=== PATIENT | male | born 1940 | race Caucasian/White ===

== ENCOUNTER 2020-03-22 19:33 | Inpatient (IN) ==
[2020-03-22 20:01] LABS: Basophils % 0.1 %; Eosinophils # 0.1 K/mcL (0.0-0.6); Eosinophils % 1.1 %; Hematocrit 44.6 % (37.5-50.1); Immature Granulocytes % 0.3 % (0-4); Lymphocytes # 0.8 K/mcL (0.6-4.6); Lymphocytes % 10.6 %; Mean Corpuscular HGB Conc 33.6 g/dL (31.6-35.5); Mean Corpuscular Hemoglobin 32.5 pg (28.0-33.3); Mean Corpuscular Volume 96.7 fL (83.0-100.0); Monocytes # 0.3 K/mcL (0.0-1.3); Monocytes % 4.6 %; Neutrophils # 6.2 K/mcL (1.6-8.9); Platelet Count 103 K/mcL (140-400); Red Blood Count 4.61 M/mcL (4.19-5.50); Red Cell Distribution Width 21.3 % (11.5-14.5); Segmented Neutrophils % 83.3 %; White Blood Count 7.4 K/mcL (4.3-11.1)
[2020-03-22 20:17] LABS: INR 1.4; Prothrombin Time 15.7 Seconds (9.4-12.1)
[2020-03-22 20:19] LABS: Activated Partial Thrombo Time 40.1 Seconds (26.0-36.0)
[2020-03-22 20:24] LABS: Bilirubin,Urine Negative (Negative); Blood,Urine Negative (Negative); Clarity,Urine Clear (Clear); Color,Urine Yellow (Yellow); Glucose,Urine (UA) Normal (Normal); Ketones,Urine Negative (Negative); Leukocyte Esterase,Urine Negative (Negative); Nitrite,Urine Negative (Negative); Protein,Urine Negative (Neg-Trace); Specific Gravity,Urine 1.015 (1.010-1.025); Urobilinogen,Urine Normal (Normal)
[2020-03-22 20:27] LABS: Troponin I 0.03 ng/mL (< 0.04)
[2020-03-22 20:28] LABS: Alanine Aminotransferase 32 Units/L (7-52); Albumin 2.6 g/dL (3.5-5.7); Albumin/Globulin Ratio 0.8 (1.1-2.2); Alkaline Phosphatase 127 Units/L (34-104); Aspartate Amino Transferase 39 Units/L (13-39); BUN/Creatinine Ratio 52 (6-26); Bilirubin,Direct 0.9 mg/dL (0.0-0.2); Bilirubin,Indirect 1.3 mg/dL (0.0-1.0); Bilirubin,Total 2.2 mg/dL (0.3-1.0); Blood Urea Nitrogen 67 mg/dL (8-23); Calcium 8.3 mg/dL (8.6-10.3); Carbon Dioxide 27 mEq/L (23-29); Chloride 101 mEq/L (98-107); Globulin 3.3 g/dL (2.4-3.5); Glucose 68 mg/dL (70-105); Magnesium 1.9 mg/dL (1.6-2.6); Osmolality,Calculated 306 (280-300); Potassium 2.9 mEq/L (3.5-5.1); Sodium 139 mEq/L (136-145); Total Protein 5.9 g/dL (6.4-8.9); eGFR For African Americans > 60 (> 60); eGFR For Non-African Americans 54 (> 60)
[2020-03-22] MEDS ORDERED: Furosemide 40 MG/4 ML VIAL IVP ONE (21:05)
[2020-03-22] MEDS ORDERED: Isovue-370 500 ML BOTTLE IVP ONE ×2 (21:58→22:10)
[2020-03-22] MEDS ORDERED: Naloxone 0.4 MG/ML INJ IVP PRN (22:10)
[2020-03-22] MEDS ORDERED: cefTRIAXone 1,000 MG in 0.9 % Sodium Chloride Mini Bag 100 ML IVPB ONE (23:44)
[2020-03-22] MEDS: traZODone 50 MG TABLET PO SCH (23:58)
[2020-03-23 06:45] LABS: Basophils % 0.1 %; Eosinophils # 0.1 K/mcL (0.0-0.6); Eosinophils % 1.3 %; Hematocrit 47.8 % (37.5-50.1); Hemoglobin 16.5 g/dL (12.9-16.9); Immature Granulocytes % 0.4 % (0-4); Mean Corpuscular HGB Conc 34.5 g/dL (31.6-35.5); Mean Corpuscular Hemoglobin 33.2 pg (28.0-33.3); Mean Corpuscular Volume 96.2 fL (83.0-100.0); Mean Platelet Volume 12.1 fL (9.4-12.4); Monocytes # 0.4 K/mcL (0.0-1.3); Neutrophils # 6.3 K/mcL (1.6-8.9); Platelet Count 110 K/mcL (140-400); Red Blood Count 4.97 M/mcL (4.19-5.50); Red Cell Distribution Width 21.4 % (11.5-14.5); Segmented Neutrophils % 80.2 %; White Blood Count 7.9 K/mcL (4.3-11.1)
[2020-03-23 07:21] LABS: BUN/Creatinine Ratio 52 (6-26); Blood Urea Nitrogen 60 mg/dL (8-23); Calcium 8.4 mg/dL (8.6-10.3); Carbon Dioxide 30 mEq/L (23-29); Chloride 104 mEq/L (98-107); Glucose 56 mg/dL (70-105); Magnesium 1.7 mg/dL (1.6-2.6); Osmolality,Calculated 313 (280-300); Potassium 3.1 mEq/L (3.5-5.1); Sodium 144 mEq/L (136-145); eGFR For African Americans > 60 (> 60); eGFR For Non-African Americans > 60 (> 60)
[2020-03-23] MEDS ORDERED: carvediloL 6.25 MG TABLET PO SCH (08:00)
[2020-03-23] MEDS ORDERED: Sacubitril/Valsartan 24/26 MG 1 TABLET PO SCH ×2 (09:00)
[2020-03-23] MEDS ORDERED: *HR* Amiodarone 200 MG TABLET PO SCH (09:00)
[2020-03-23] MEDS ORDERED: Aspirin 81 MG TAB.CHEW PO SCH (09:00)
[2020-03-23] MEDS ORDERED: Bumetanide 1 MG TABLET PO SCH ×2 (09:00)
[2020-03-23] MEDS ORDERED: (Omega-3/Dha/Epa/Fish Oil [Fish Oil 1,000 Mg Softgel] PO SCH (09:00)
[2020-03-23] MEDS ORDERED: Spironolactone 25 MG TABLET PO SCH (09:00)
[2020-03-23] MEDS ORDERED: FLUoxetine 20 MG CAPSULE PO SCH (09:00)
[2020-03-23] MEDS: carvediloL 6.25 MG TABLET PO SCH ×2 (09:26→17:59)
[2020-03-23] MEDS: FLUoxetine 20 MG CAPSULE PO SCH (09:26)
[2020-03-23] MEDS: *HR* Amiodarone 200 MG TABLET PO SCH (09:26)
[2020-03-23] MEDS: Aspirin 81 MG TAB.CHEW PO SCH (09:27)
[2020-03-23] MEDS: Spironolactone 25 MG TABLET PO SCH (09:27)
[2020-03-23] MEDS: (Omega-3/Dha/Epa/Fish Oil [Fish Oil 1,000 Mg Softgel] PO SCH (09:32)
[2020-03-23] MEDS: Sacubitril/Valsartan 49/51 MG 1 TABLET PO SCH ×2 (09:36→19:46)
[2020-03-23] MEDS ORDERED: Perflutren Lipid Microsphere 1.3 ML in 0.9 % Sodium Chloride 8.7 ML IVP ONE (16:52)
[2020-03-23] MEDS: Furosemide 20 MG/2 ML VIAL IVP SCH (17:59)
[2020-03-23] MEDS: Cefepime HCl 1,000 MG in 0.9 % Sodium Chloride Mini Bag 100 ML IVPB SCH (18:00)
[2020-03-23] MEDS: traZODone 50 MG TABLET PO SCH (19:45)
[2020-03-23] MEDS ORDERED: traZODone 50 MG TABLET PO SCH (21:00)
[2020-03-23] MEDS ORDERED: *HR* Dextrose 50 % in Water (Vial) 50 ML VIAL IVP PRN (22:50)
[2020-03-23] MEDS ORDERED: D5% in Water 1,000 ML IVC PRN (22:50)
[2020-03-23] MEDS ORDERED: Dextrose Gel 15 GM/37.5 ML TUBE PO PRN ×2 (22:50)
[2020-03-24] MEDS ORDERED: Melatonin 3 MG TABLET PO PRN (03:46)
[2020-03-24] MEDS ORDERED: *HR* Enoxaparin 40 MG/0.4 ML SYRINGE SQ SCH (06:00)
[2020-03-24] MEDS: Cefepime HCl 1,000 MG in 0.9 % Sodium Chloride Mini Bag 100 ML IVPB SCH (06:38)
[2020-03-24] MEDS: carvediloL 6.25 MG TABLET PO SCH ×2 (08:26→16:53)
[2020-03-24 08:28] LABS: Basophils % 0.2 %; Eosinophils # 0.1 K/mcL (0.0-0.6); Eosinophils % 1.4 %; Hematocrit 44.7 % (37.5-50.1); Hemoglobin 15.2 g/dL (12.9-16.9); Immature Granulocytes % 0.4 % (0-4); Lymphocytes # 0.9 K/mcL (0.6-4.6); Lymphocytes % 11.5 %; Mean Corpuscular Hemoglobin 32.8 pg (28.0-33.3); Mean Corpuscular Volume 96.3 fL (83.0-100.0); Mean Platelet Volume 11.7 fL (9.4-12.4); Monocytes # 0.4 K/mcL (0.0-1.3); Monocytes % 4.3 %; Neutrophils # 6.7 K/mcL (1.6-8.9); Platelet Count 113 K/mcL (140-400); Red Blood Count 4.64 M/mcL (4.19-5.50); Red Cell Distribution Width 21.3 % (11.5-14.5); Segmented Neutrophils % 82.2 %; White Blood Count 8.1 K/mcL (4.3-11.1)
[2020-03-24] MEDS: Furosemide 20 MG/2 ML VIAL IVP SCH (08:28)
[2020-03-24] MEDS: FLUoxetine 20 MG CAPSULE PO SCH (08:29)
[2020-03-24] MEDS: *HR* Amiodarone 200 MG TABLET PO SCH (08:30)
[2020-03-24] MEDS: Aspirin 81 MG TAB.CHEW PO SCH (08:30)
[2020-03-24] MEDS: Spironolactone 25 MG TABLET PO SCH (08:31)
[2020-03-24] MEDS: Sacubitril/Valsartan 49/51 MG 1 TABLET PO SCH (08:49)
[2020-03-24 09:01] LABS: BUN/Creatinine Ratio 45 (6-26); Blood Urea Nitrogen 55 mg/dL (8-23); Calcium 8.2 mg/dL (8.6-10.3); Carbon Dioxide 26 mEq/L (23-29); Chloride 105 mEq/L (98-107); Glucose 99 mg/dL (70-105); Magnesium 1.6 mg/dL (1.6-2.6); Osmolality,Calculated 311 (280-300); Sodium 143 mEq/L (136-145); eGFR For African Americans > 60 (> 60); eGFR For Non-African Americans 57 (> 60)
[2020-03-24] MEDS: (Omega-3/Dha/Epa/Fish Oil [Fish Oil 1,000 Mg Softgel] PO SCH (12:07)
[2020-03-24 15:42] VITALS: BP 58/35
[2020-03-24] MEDS ORDERED: Acetaminophen 325 MG TABLET PO PRN (16:07)
[2020-03-24] MEDS ORDERED: *HR* OxyCODONE Immed Rel 5 MG TABLET PO PRN (16:07)
[2020-03-24] MEDS ORDERED: Haloperidol Lactate 5 MG/ML VIAL IVP PRN (16:07)
[2020-03-24] MEDS ORDERED: Atropine Sulfate 1% 40 DROP/2 ML BOTTLE SL PRN (16:07)
[2020-03-24] MEDS ORDERED: haloperidoL 1 MG TABLET PO PRN (16:07)
[2020-03-24] MEDS ORDERED: SACUBITRIL PO SCH (21:00)
[2020-03-24] MEDS ORDERED: Sacubitril/Valsartan 24/26 MG 1 TABLET PO SCH (21:00)
[2020-03-24] MEDS ORDERED: VALSARTAN PO SCH (21:00)
== END 2020-03-24 17:36 | disposition hospice, inpatient (51) | DRG 291 ==
LOC: EMEROOPIK 19:33 → INPPIK 19:33
PROVIDERS: ADMIT Family Medicine; ATTEND Family Medicine

== ENCOUNTER 2020-03-24 12:16 | Inpatient (IN) ==
[2020-03-24] MEDS ORDERED: Atropine Sulfate 1% 40 DROP/2 ML BOTTLE SL PRN (16:13)
[2020-03-24] MEDS ORDERED: Ondansetron 4 MG/2 ML VIAL IVP PRN (16:13)
[2020-03-24] MEDS ORDERED: Haloperidol Lactate 5 MG/ML VIAL IVP PRN (16:13)
[2020-03-24] MEDS ORDERED: *HR* LORazepam 2 MG/ML VIAL IVP PRN (16:13)
[2020-03-25] MEDS ORDERED: *HR* LORazepam 2 MG/ML VIAL IM PRN (00:34)
[2020-03-25] MEDS: Morphine Sulfate Oral CONC 10 MG/0.5 ML ORAL.SYG PO PRN (03:19)
[2020-03-26] MEDS: ALPRAZolam 0.25 MG TABLET PO PRN (12:03)
[2020-03-26] MEDS: *HR* HYDROcodone/Acet 5/325 mg TABLET PO PRN (12:12)
[2020-03-26] MEDS: Morphine Sulfate Oral CONC 10 MG/0.5 ML ORAL.SYG PO PRN ×4 (13:45→23:35)
[2020-03-26] MEDS: haloperidoL 1 MG TABLET PO PRN ×2 (15:35→22:04)
[2020-03-27] MEDS: ALPRAZolam 0.25 MG TABLET PO PRN (10:06)
[2020-03-27] MEDS: *HR* HYDROcodone/Acet 5/325 mg TABLET PO PRN (10:07)
[2020-03-28] MEDS: *HR* HYDROcodone/Acet 5/325 mg TABLET PO PRN (01:39)
[2020-03-28] MEDS: ALPRAZolam 0.25 MG TABLET PO PRN (01:40)
[2020-03-28] MEDS ORDERED: Ondansetron ODT 4 MG TAB.RAPDIS SL PRN (08:58)
[2020-03-29] MEDS: ALPRAZolam 0.25 MG TABLET PO PRN ×2 (02:59→09:24)
[2020-03-29 19:23] VITALS: BP 80/67
[2020-03-29] MEDS: Morphine Sulfate Oral CONC 10 MG/0.5 ML ORAL.SYG PO PRN (19:47)
== END 2020-03-29 23:00 | disposition expired | DRG 291 ==
LOC: INPPIK 17:40
PROVIDERS: ADMIT Family Medicine; ATTEND Family Medicine